=== PATIENT | female | born 1950 | race Caucasian/White ===

== ENCOUNTER → 2021-03-12 11:55 | Outpatient (CLI) | payer MEDICARE, SELFPAY ==
--- NOTE | 2021-03-12 11:56 | DI.MRI.S_ITS ---
PROCEDURE: MR LUMBAR SPINE WO CON INDICATIONS: Status post fusion L5-S1 with slips at L3-4 and 4 5 TECHNIQUE: Noncontrast sagittal T1 spin echo and T2 fast echo, sagittal STIR, axial T1 and T2 fast spin echo through the lumbar spine. In cases with scoliosis, additional coronal T2 fast spin echo may be performed. COMPARISON: [facility], RG, XR L-SPINE 2-3V, 10/11/2020, 12:39. FINDINGS: Image quality: Excellent. Alignment and Curvature: There is a transitional element at L5. Numbering system is as denoted on the montage panel of the current examination. Mild grade 1 anterolisthesis of L2 on L3, L3 on L4, L4 on L5, and L5 on S1. Bone Marrow: Marrow is of normal overall signal. No acute vertebral body compression fractures. Mild reactive signal within the endplates adjacent to the L1-L2 , L2-L3, and L3-L4 intervertebral discs. Spinal Cord: Conus medullaris terminates at the mid L1 level. Visualized cord demonstrates normal signal and size. Paraspinous Soft Tissues: No paravertebral masses. T12-L1: Moderate disc height loss and desiccation. Mild diffuse disc bulge. No significant canal, or foraminal stenosis. L1-L2: Moderate disc height loss and desiccation. Mild diffuse disc bulge. Mild canal stenosis. Mild bilateral foraminal stenosis. L2-L3: Moderate disc height loss and desiccation. Mild diffuse disc bulge. Mild canal stenosis. Mild bilateral foraminal stenosis. L3-L4: Moderate disc height loss and desiccation. Mild diffuse disc bulge. Moderate facet and ligamentum flavum hypertrophy. Mild canal stenosis. Moderate to severe left greater than right foraminal stenosis. Left greater than right L3 nerve root compression. L4-L5: Moderate disc height loss and desiccation. Mild bilateral facet hypertrophy. Mild canal stenosis. Mild bilateral foraminal stenosis. L5-S1: Severe disc height loss. No significant canal stenosis. Mild bilateral foraminal stenosis. IMPRESSION: 1. Atypical numbering system with transitional element at L5, as denoted on the montage panel. Recommend correlation with the montage panel of the current examination as well as plain films, for numbering purposes, prior to any lumbar spinal intervention. 2. Multilevel degenerative disc and facet disease, as well as ligamentum flavum hypertrophy and epidural lipomatosis. 3. Mild multilevel canal stenoses. 4. Multilevel foraminal stenoses, worst at L3-L4 where there is associated intraforaminal nerve root compression. Dictated by: Mildred Mc M.D. on 03/12/2021 at 13:54 Approved by: Mildred Mc M.D. on 03/12/2021 at 14:37
== END ==
PROVIDERS: PCP Internal Medicine; Referring Provider Physical Medicine & Rehabilitation; Visit Provider Physical Medicine & Rehabilitation
DX: M43.16 Spondylolisthesis, lumbar region (principal); M48.07 Spinal stenosis, lumbosacral region; M48.061 Spinal stenosis, lumbar region without neurogenic claudication; M51.36 Other intervertebral disc degeneration, lumbar region; M47.816 Spondylosis without myelopathy or radiculopathy, lumbar region; E88.2 Lipomatosis, not elsewhere classified; Z98.1 Arthrodesis status
CPT/HCPCS: 72148

== ENCOUNTER → 2023-09-24 10:08 | Outpatient (CLI) | payer MEDICARE, SELFPAY ==
--- NOTE | 2023-09-24 10:10 | DI.RAD.S_ITS ---
PROCEDURE: XR LUMBAR SPINE MIN 4V INDICATIONS: low back pain TECHNIQUE: 5 views of the lumbar spine were acquired, including bilateral oblique views. COMPARISON: [facility], MR, MR LUMBAR SPINE WO CON, 03/12/2021, 12:05. [facility], RG, XR L-SPINE 2-3V, 10/11/2020, 12:39. FINDINGS: Bones: 5 nonrib-bearing vertebrae are present. Transitional anatomy at L5. Anterolisthesis of L5 on S1 measuring 0.7 cm. Anterolisthesis of L4 on L5 measuring 0.6 cm. Not significantly changed compared to 2020. Small vertebral body osteophytes. Facet joint hypertrophy most pronounced at L5-S1. No vertebral body compression fractures. No suspicious bony lesions. Soft tissues: Overlying bowel gas pattern is normal. No suspicious soft tissue calcifications. Clips in the left pelvis. Arterial vascular calcifications. IMPRESSION: No compression fracture. Grade 1 anterolisthesis at L4-L5 and L5-S1 similar to 202. Dictated by: Jos eAntonio Lo M.D. on 09/24/2023 at 12:43 Approved by: Jose Antonio Lo M.D. on 09/24/2023 at 12:51
--- NOTE | 2023-09-24 10:10 | DI.RAD.S_ITS ---
PROCEDURE: XR THORACIC SPINE 3V INDICATIONS: thoracic back pain TECHNIQUE: 3 views of the thoracic spine were acquired. COMPARISON: None. FINDINGS: Bones: No fractures or dislocations. No suspicious bony lesions. 12 pairs of ribs are noted, and appear intact where visualized. Soft tissues: No paravertebral stripe thickening. Right-sided port with the catheter tip at the middle 3rd of the SVC. Surgical clips projecting over the left upper abdomen. Left shoulder anchors. Clip at the left chest wall. IMPRESSION: No compression fracture seen. Dictated by: Jose Antonio Lo M.D. on 09/24/2023 at 12:51 Approved by: Jose Antonio Lo M.D. on 09/24/2023 at 12:52
== END ==
PROVIDERS: PCP Internal Medicine; Referring Provider Physical Medicine & Rehabilitation; Visit Provider Physical Medicine & Rehabilitation
DX: M47.816 Spondylosis without myelopathy or radiculopathy, lumbar region (principal); M54.6 Pain in thoracic spine; M43.17 Spondylolisthesis, lumbosacral region; M43.16 Spondylolisthesis, lumbar region
CPT/HCPCS: 72072; 72110

== ENCOUNTER → 2023-09-30 08:33 | Outpatient (CLI) | payer MEDICARE, SELFPAY ==
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
--- NOTE | 2023-09-30 08:34 | DI.MRI.S_ITS ---
PROCEDURE: MR LUMBAR SPINE WO CON INDICATIONS: Lumbar radiculopathy TECHNIQUE: Noncontrast sagittal T1 spin echo and T2 fast echo, sagittal STIR, and T2 fast spin echo through the lumbar spine. In cases with scoliosis, additional coronal T2 fast spin echo may be performed. COMPARISON: [facility], MR, MR LUMBAR SPINE WO CON, 03/12/2021, 12:05. [facility], MR, MR THORACIC SPINE WO CON, 09/30/2023, 8:43. [facility], CR, XR LUMBAR SPINE MIN 4V, 09/24/2023, 10:20. FINDINGS: Image quality: Excellent. Alignment and Curvature: There is mild grade 1 anterolisthesis seen at the L3-L4 level and at the L4-L5 level. Minimal anterolisthesis can be seen at L5-S1. Bone Marrow: Marrow is of normal overall signal. No acute vertebral body compression fractures. Spinal Cord: Conus medullaris terminates at the L1 level. Visualized cord demonstrates normal signal and size. Paraspinous Soft Tissues: No paravertebral masses. This patient has transitional lumbar anatomy. For the purposes of this examination, the level with the last visualized disc space is considered to be L5-S1. By this numbering scheme, the L5 level is transitional and partially sacralized. This numbering scheme is chosen to remain consistent with the prior lumbar MRI report. T12-L1: Normal appearance. L1-L2: Normal appearance. L2-L3: The disc height and disk signal are relatively well-preserved. Mild generalized disc bulge is seen. There is a superimposed central disc protrusion. Mild facet joint hypertrophy is seen. Mild bilateral neural foraminal narrowing is seen. Minimal central canal narrowing is seen. There is slight progression of degenerative change compared to 2020. L3-L4: Mild loss of disc height is seen. Loss of disc signal is seen. Mild generalized disc bulge is seen. Prominent facet hypertrophy can be seen. Mild to moderate bilateral neural foraminal narrowing is seen. Moderate central canal narrowing is seen. The degree of central canal narrowing is worse on the current study than on the prior. L4-L5: The disc height is well-preserved. Loss of disc signal is seen at this level. Mild generalized disc bulge is seen. Moderate facet joint hypertrophy is seen. Minimal bilateral neural foraminal narrowing can be seen. No central canal narrowing is seen. When comparison is made with the prior images, these findings are similar. L5-S1: A rudimentary disc space is seen at this level. There is at least moderate loss of disc height seen. Stable increased T1 weighted and T2 weighted imaging can be seen along this disc level. Mild to moderate disc bulge is seen. Mild to moderate facet hypertrophy is seen. There is [id number] right-sided and moderate left-sided neural foraminal narrowing. No central canal narrowing is seen. Stable from the prior study. IMPRESSION: Multiple levels of lumbar spine degenerative change can be seen, which are overall worst at the L3-L4 level. There is mild progression of degenerative change seen at L2-L3 and L3-L4 compared to 2021. There is transitional lumbar anatomy, with a partially sacralized L5 level and a rudimentary disc space seen at L5-S1. Dictated by: Raoul Vázquez M.D. on 09/30/2023 at 10:15 Approved by: Raoul Vázquez M.D. on 09/30/2023 at 10:23
== END ==
LOC: MRI 08:33
PROVIDERS: PCP Internal Medicine; Referring Provider Physical Medicine & Rehabilitation; Visit Provider Physical Medicine & Rehabilitation
DX: M51.24 Other intervertebral disc displacement, thoracic region (principal); M47.814 Spondylosis without myelopathy or radiculopathy, thoracic region; M43.16 Spondylolisthesis, lumbar region; M47.816 Spondylosis without myelopathy or radiculopathy, lumbar region; M47.817 Spondylosis without myelopathy or radiculopathy, lumbosacral region; M43.27 Fusion of spine, lumbosacral region; G89.29 Other chronic pain
CPT/HCPCS: 72146; 72148

== ENCOUNTER 2024-01-08 08:29 | Outpatient (CLI) | payer MEDICARE, SELFPAY ==
[2024-01-08] VITALS (11 sets, daily range): BP systolic 139–234; BP diastolic 70–114; PULSE 68–90; RESP 9–18; TEMP 35.4; O2SAT 94–99
--- NOTE | 2024-01-08 09:30 | DI.RAD.S_ITS ---
PROCEDURE: PAIN C/T INTERLAMINAR INJECT INDICATIONS: RADICULOPATHY COMPARISON: None. FINDINGS: Fluoroscopic spot filming was performed to verify placement of spinal needles at the T7-T8 level(s), as labeled on the films. Appropriate location(s) of the needle tip(s) was confirmed by injection of iodinated contrast. IMPRESSION: Intraoperative guidance provided. Dictated by: Jose Antonio Lo M.D. on 01/08/2024 at 22:52 Approved by: Jose Antonio Lo M.D. on 01/08/2024 at 22:52
[2024-01-08] MEDS: MIDAZOLAM 2 MG/2 ML VIAL IV (09:53)
[2024-01-08] MEDS: MIDAZOLAM 2 MG/2 ML VIAL 1 MG IV (09:59)
[2024-01-08] MEDS: BUPIVACAINE 0.25% (PF) VIAL 2 ML INJ (10:00)
[2024-01-08] MEDS: DEXAMETHASONE 10 MG/ML VIAL 20 MG INJ (10:00)
[2024-01-08] MEDS: iopamidoL 15 ML VIAL 3 ML INJ (10:01)
--- NOTE | 2024-01-08 10:13 | PM.PROC.IR.1 ---
Date/Time/Diagnoses Date of procedure: 01/08/24 Time of procedure: 10:13 Pre-procedure diagnosis: Thoracic stenosis with HNP Post-procedure diagnosis: same Procedure Notes Procedure: Fluoroscopic guided, contrast controlled T7/8 translaminar epidural steroid injection with conscious sedation. Indications: Jose is referred by Dr. Yin for treatment of thoracic DDD/DJD with radiculopathy Physician: Leif Estrlela Total Fluoroscopy time (seconds): 28 Total sedation minutes: 16 Complications: none Procedure in detail & Post-procedure care: DESCRIPTION OF PROCEDURE Fluoroscopic guided, contrast controlled T7/8 translaminar epidural steroid injection with conscious sedation. Following review of allergy review potential side effects and complications, including, but not necessarily limited to, infection, allergic reaction, local tissue breakdown, temporary as well as permanent nerve injury, stroke, paralysis and possible , the patient indicated that they understood and agreed to proceed. An informed consent document was signed by the patient, witnessed by the nurse, and placed in the patient's chart. Additionally other treatment options including modalities, medications and physical therapy were reviewed with the patient. After review of previous anaesthesic history and IV conscious sedation the patient was deemed safe to proceed with today's procedure with IV conscious sedation as ASA class II designation. Safety time-out was performed to confirm patient ID, procedure to be performed and site of procedure. IV sedation was accomplished with a combination of 3mg of Versed administered by the RN after DO order, titrated to patient comfort during the course of the procedure while the patient remained responsive to all verbal commands In the prone position, following sterile prep and drape of the thoracic region the T7/8 translaminar space was identified fluoroscopically. The skin was anesthetized via 25 gauge 1.5inch needle with 1% lidocaine solution. At this point a 22gauge epidural needle was atraumatically introduced and advanced under fluoroscopic guidance into the region of the T7/8 translaminar space depth was confirmed on lateral view. Radiographic data, including multiple fluoroscopic views of the thoracic spine, reveals spinal needle at the T7/8 translaminar space. Lateral views then showed the placement of the needle in the epidural space. Subsequent view show contrast material flowing superiorly and inferiorly in the epidural space. No vascular or intrathecal uptake is observed. At this point using loss of resistance technique with saline and the epidural space was entered. This was confirmed followed negative aspiration and injection of approximately 1.5cc of Isovue 200 showed excellent epidural flow without vascular or intrathecal uptake. At this point, 1 cc of 1% lidocaine solution was admitted as a test dose and the patient was observed for an appropriate period of time without signs or symptoms of complications, including abdominal pain, shortness of breath, bilateral upper and lower extremity weakness, nausea and vomiting, prior to steroid injection. Subsequently, 2cc or 20mg of dexamethasone was then injected without incident. The patient tolerated the procedure well without signs of complications and subsequently was transferred to the recovery room for further monitoring. The patient was then transferred to the recovery area with their observed for an appropriate time after the injection. Patient reported a VAS score of 8 prior to the procedure and post-procedure VAS of 2.
== END 2024-01-08 10:30 | disposition home or self-care (01) ==
LOC: RAD 08:29
PROVIDERS: PCP Internal Medicine; Referring Provider Physical Medicine & Rehabilitation; Visit Provider Physical Medicine & Rehabilitation
DX: M48.04 Spinal stenosis, thoracic region (principal); M51.14 Intervertebral disc disorders with radiculopathy, thoracic region; M47.24 Other spondylosis with radiculopathy, thoracic region
CPT/HCPCS: 62321; 99152; J1100; J2250; J3490